=== PATIENT | male | born 1965 | race Caucasian/White ===

== ENCOUNTER 2018-07-31 19:53 | Emergency (ER) | payer BC, OTHER ==
[2018-07-31 19:58] VITALS: BP 133/86; PULSE 72; TEMP 97.9; BMI 27.7
--- NOTE | 2018-07-31 20:30 | PDOC ---
History of Present Illness - General History Source: Patient Exam Limitations: No Limitations - History of Present Illness Initial Comments: 07/31/18 20:30 The patient is a 53 year old male with no significant past medical history who presents to the ED s/p injury earlier today. The patient states he was playing tennis earlier today when he got hit in the face with a tennis racket. Patient comes into the ED with a laceration to the bridge of his nose and with 2/10 pain at the site of the laceration. Up to date on tetanus shot. Denies nose bleed. Denies focal numbness/weakness/tingling. Denies LOC. Denies any other symptoms. <Tommy Sharpe - Last Filed: 07/31/18 20:30> <Jeanne Rice - Last Filed: 08/01/18 01:41> - General Chief Complaint: Laceration Stated Complaint: CUT ON NOSE Time Seen by Provider: 07/31/18 20:03 Past History <Tommy Sharpe - Last Filed: 07/31/18 20:30> - Past Medical History COPD: No - Suicide/Smoking/Psychosocial Hx Smoking History: Never smoked Hx Alcohol Use: No Drug/Substance Use Hx: No <Jeanne Rice - Last Filed: 08/01/18 01:41> - Past Medical History Allergies/Adverse Reactions: Allergies Allergy/AdvReac Type Severity Reaction Status Date / Time No Known Allergies Allergy Verified 07/31/18 19:54 Home Medications: Ambulatory Orders NK [No Known Home Medication] 07/31/18 Review of Systems - Review of Systems Able to Perform ROS?: Yes Comments:: 07/31/18 20:31 CONSTITUTIONAL: Absent: fever, chills, diaphoresis, generalized weakness, malaise, loss of appetite HEENT: Absent: rhinorrhea, nasal congestion, throat pain, throat swelling, difficulty swallowing, mouth swelling, ear pain, eye pain, visual Changes CARDIOVASCULAR: Absent: chest pain, syncope, palpitations, irregular heart rate, lightheadedness , peripheral edema RESPIRATORY: Absent: cough, shortness of breath, dyspnea with exertion, orthopnea, wheezing, stridor, hemoptysis GASTROINTESTINAL: Absent: abdominal pain, abdominal distension, nausea, vomiting, diarrhea, constipation, melena, hematochezia GENITOURINARY: Absent: dysuria, frequency, urgency, hesitancy, hematuria, flank pain, genital pain MUSCULOSKELETAL: Absent: myalgia, arthralgia, joint swelling SKIN: + injury Absent: rash, itching, pallor HEMATOLOGIC/IMMUNOLOGIC: Absent: easy bleeding, easy bruising, lymphadenopathy, frequent infections ENDOCRINE: Absent: unexplained weight gain, unexplained weight loss, heat intolerance, cold intolerance NEUROLOGIC: Absent: headache, focal weakness or paresthesias, dizziness, unsteady gait, seizure, mental status changes, bladder or bowel incontinence PSYCHIATRIC: Absent: anxiety, depression, suicidal or homicidal ideation, hallucinations. All Other Systems: Reviewed and Negative <Tommy Sharpe - Last Filed: 07/31/18 20:30> *Physical Exam - Vital Signs Last Vital Signs Temp Pulse Resp BP Pulse Ox 97.9 F 72 15 133/86 100 07/31/18 19:53 07/31/18 19:53 07/31/18 19:53 07/31/18 19:53 07/31/18 19:53 - Physical Exam Comments: 07/31/18 20:31 GENERAL: The patient is awake, alert, and fully oriented, in no acute distress. HEAD:[Normal with no signs of trauma. EYES: Pupils equal, round and reactive to light, extraocular movements intact, sclera anicteric, conjunctiva clear. NASAL: + partial thickness non bleeding 0.5cm linear horizontal laceration on the bridge of the nose. There is no clots, septal hematoma, or septal deviation. EXTREMITIES: Normal range of motion, no edema. NEUROLOGICAL: Normal speech, normal gait. PSYCH: Normal mood, normal affect. SKIN: Warm, Dry, normal turgor, no rashes or lesions noted. <Tommy Sharpe - Last Filed: 07/31/18 20:30> - Vital Signs Last Vital Signs Temp Pulse Resp BP Pulse Ox 97.9 F 72 15 133/86 100 07/31/18 19:53 07/31/18 19:53 07/31/18 19:53 07/31/18 19:53 07/31/18 19:53 <Jeanne Rice - Last Filed: 08/01/18 01:41> Progress Note - Progress Note Progress Note: Documentation has been prepared under my direction and personally reviewed by me in its entirety. I attest that this documented accurately reflects all work, treatment, procedures and medical decision making performed by me. <Jeanne Rice - Last Filed: 08/01/18 01:41> Medical Decision Making - Medical Decision Making As noted above, this 53-year-old man presents with injury to the bridge of his nose. This was sustained when he was playing tennis and he was hit in this area by edge of the racket. No LOC ; no fall. Patient sustained small laceration on the bridge of his nose but denies epistaxis. States that the pain is "2/10". No other complaints. Exam as noted. Because there is no significant tenderness/deformity in the area of the nasal bridge and no nasal hematoma/clot or deviation of the septum, unlikely that nasal bone fractures present. Area of superficial laceration of nasal bridge cleansed using 4 x 4 gauze and sterile normal saline. Skin edges closely aligned and Dermabond skin adhesive used for skin closure. Patient tolerated procedure well. Patient discharged with instructions to keep head elevated tonight; glued area should be kept dry for 24 hours. He should return or see his doctor if area becomes inflamed/red/painful and return to ER if he has any epistaxis. Also, if area of his nasal bridge becomes painful or swollen, he should return to the ER to have nasal bone x-ray to rule out fracture. <Jeanen Rice - Last Filed: 08/01/18 01:41> *DC/Admit/Observation/Transfer - Attestations Scribe Attestion: 07/31/18 20:31 Documentation prepared by Tommy Sharpe, acting as medical stenographer for Jeanne Rice MD <Tommy Sharpe - Last Filed: 07/31/18 20:30> <Jeanne Rice - Last Filed: 08/01/18 01:41> Diagnosis at time of Disposition: Nasal laceration Qualifiers: Encounter type: initial encounter Qualified Code(s): S01.21XA - Laceration without foreign body of nose, initial encounter - Discharge Dispostion Disposition: HOME Condition at time of disposition: Stable - Patient Instructions Printed Discharge Instructions: DI for Laceration Repair With Dermabond Additional Instructions: Keep head elevated on extra pillow tonight Keep wound as dry as possible for 24 hours Motrin/Tylenol as needed for pain Return here or see your doctor if you have increased pain or have bloody nose Return here or see your doctor if wound becomes red/swollen/painful
== END 2018-07-31 20:33 | disposition home or self-care (01) ==
LOC: FER 19:53
PROC: 0HQ1XZZ Repair Face Skin, External Approach (ICD-10-PCS; principal; 2018-07-31)
DX: S01.21XA Laceration without foreign body of nose, initial encounter (principal); W22.8XXA Striking against or struck by other objects, initial encounter; Y93.73 Activity, racquet and hand sports; Y92.312 Tennis court as the place of occurrence of the external cause
CPT/HCPCS: 99281-25